=== PATIENT | male | born 1995 | race African-American/Black ===

== ENCOUNTER 2024-02-04 10:29 | Emergency (ER) | payer SELFPAY | END 2024-02-04 10:55 | disposition left against medical advice (07) | LOC: JD.ED 10:29 | DX: Z53.21 Procedure and treatment not carried out due to patient leaving prior to being seen by health care provider (principal) ==

== ENCOUNTER 2024-02-06 10:50 | Emergency (ER) | payer SELFPAY ==
[2024-02-06 11:39] LABS: BASOPHILS PERCENT AUTO 0.2 % (0.0-1.0); EOSINOPHILS PERCENT AUTO 0.1 % (0.0-6.0); HEMATOCRIT 40.9 % (42.0-52.0); HEMOGLOBIN 14.4 gm/dl (14.0-18.0); IMMATURE GRAN ABSOLUTE AUTO 0.05 K/mm3 (0.00-0.05); IMMATURE GRAN PERCENT AUTO 0.4 % (0.0-0.4); LYMPHOCYTES ABSOLUTE AUTO 1.8 K/mm3 (1.0-4.8); LYMPHOCYTES PERCENT AUTO 12.7 % (24.0-44.0); MEAN CORPUSCULAR HEMOGLOBIN 31.5 pg (28.0-32.0); MEAN CORPUSCULAR HGB CONC 35.2 g/dl (32.0-36.0); MEAN CORPUSCULAR VOLUME 89.5 fl (83.0-99.0); MEAN PLATELET VOLUME 8.7 fl (9.4-12.4); MONOCYTES ABSOLUTE AUTO 1.4 K/mm3 (0.0-0.8); MONOCYTES PERCENT AUTO 10.2 % (0.0-8.0); NEUTROPHILS ABSOLUTE AUTO 10.8 K/mm3 (1.8-7.7); NEUTROPHILS PERCENT AUTO 76.4 % (41.0-71.0); PLATELET COUNT,PLT 381 K/mm3 (150-400); RED BLOOD CELL COUNT 4.57 M/mm3 (4.52-5.90); WHITE BLOOD CELL COUNT,WBC 14.08 K/mm3 (3.9-11.3)
[2024-02-06 11:57] LABS: A/G RATIO 0.8 (1-2); ALBUMIN 3.5 g/dl (3.4-5.0); ANION GAP 13.8 (5-15); BILIRUBIN TOTAL 0.6 mg/dL (0.2-1.0); BUN/CREATININE RATIO 9.2 (14-18); C-REACTIVE PROTEIN 8.05 mg/dL (<0.30); CALCIUM 9.4 mg/dL (8.5-10.1); CREATININE 1.2 mg/dL (0.7-1.3); EST CRCL DRUG DOSING (CG) 104.5 mL/min; POTASSIUM,K 3.8 mEq/L (3.5-5.1); PROTEIN TOTAL,TP 7.9 g/dl (6.4-8.2)
[2024-02-06] MEDS: Ondansetron 4 MG/2 ML SDV IVPUSH ONE (12:05)
[2024-02-06] MEDS: Sodium Chloride 0.9% 10 ML Syringe FLUSH PRN (12:05)
[2024-02-06] MEDS: HYDROmorphone 0.5 MG/0.5 ML Syringe IVPUSH ONE (12:07)
[2024-02-06] MEDS: Sodium Chloride 0.9% 1,000 ML IV STA (12:09)
[2024-02-06] MEDS: Iopamidol 612 MG/ML 100 ML Bottle IVPUSH ONE (12:43)
[2024-02-06] MEDS: Piperacillin/Tazobactam 4.5 GM in Sodium Chloride 0.9% 100 ML IV ONE (13:00)
[2024-02-06] MEDS: Lidocaine 1% 20 ML MDV INJECT ONE (13:15)
== END 2024-02-06 14:53 | disposition home or self-care (01) ==
LOC: JD.ED 10:50
DX: L02.31 Cutaneous abscess of buttock (principal); Z79.899 Other long term (current) drug therapy
CPT/HCPCS: 10060; 36415; 74177; 80053; 85025; 86140; 87070; 87075; 87205; 96361; 96365; 96375; 99284; J1170; J2405; J2543; J3490; J7030; Q9967